=== PATIENT | female | born 1970 | race American Indian/Alaskan Native ===

== ENCOUNTER 2018-01-01 09:28 | Emergency (ER) | payer MEDICAID ==
[2018-01-01] MEDS ORDERED: Sulfamethoxazole/Trimethoprim 800-160 MG Tab PO ONE (09:51)
[2018-01-01 10:33] LABS: CHLORIDE,CL 106 mmol/L (98-107); SODIUM,NA 137 mmol/L (136-145)
[2018-01-01] MEDS ORDERED: Ketorolac 30 MG/ML SDV IM ONE (10:38)
[2018-01-01] MEDS ORDERED: Gabapentin 300 MG Cap PO ONE (10:39)
[2018-01-01] MEDS ORDERED: Take Home: Sulfamethoxazole/Trimethoprim 800-160 MG Tab, 2 Tab Pack PO ONE (10:51)
--- NOTE | 2018-01-01 10:51 | EDM.PDOC ---
ED HPI GENERAL MEDICAL PROBLEM - General Chief Complaint: General Stated Complaint: INFECTED TOES Time Seen by Provider: 01/01/18 09:30 Source of Information: Reports: Patient History Limitations: Reports: No Limitations - History of Present Illness INITIAL COMMENTS - FREE TEXT/NARRATIVE: Patient reports recent removal of bilateral great toe nails. This was done in [facility]. She is here due to worries of infection and pain to toes. She states she has puss draining from each site, they are red, and she is out of her prescribed gabapentin. She does have a history of HIV, is taking medications for this. She has no other complaints at this time. No fever or chills, no night sweats, shortness of breath, chest pain, no diaphoresis. Rates pain to toes a 7/10. She has been trying to keep them elevated. Onset: Gradual Onset Date: 12/29/17 Duration: Getting Worse Location: Reports: Other (great toes bilateral) Improves with: Reports: Medication Worsens with: Reports: Movement Associated Symptoms: Reports: No Other Symptoms - Related Data Allergies Allergy/AdvReac Type Severity Reaction Status Date / Time No Known Allergies Allergy Verified 01/01/18 09:57 Home Meds: Home Meds Gabapentin [Neurontin] 600 mg PO TID 01/01/18 [History] Lurasidone HCl [Latuda] 20 mg PO DAILY 01/01/18 [History] Sertraline HCl [Zoloft] 200 mg PO DAILY 01/01/18 [History] Past Medical History Psychiatric History: Reports: Depression Immunologic History: Reports: HIV Social & Family History - Tobacco Use Smoking Status *Q: Current Every Day Smoker Years of Tobacco use: 14 Packs/Tins Daily: 0.3 ED ROS GENERAL - Review of Systems Review Of Systems: See Below Constitutional: Reports: No Symptoms HEENT: Reports: No Symptoms Respiratory: Reports: No Symptoms Cardiovascular: Reports: No Symptoms Endocrine: Reports: No Symptoms GI/Abdominal: Reports: No Symptoms : Reports: No Symptoms Musculoskeletal: Reports: Other (toe pain bilateral) Skin: Reports: Wound (states it is infected with puss drainage) Neurological: Reports: No Symptoms Psychiatric: Reports: No Symptoms Hematologic/Lymphatic: Reports: No Symptoms Immunologic: Reports: No Symptoms ED EXAM, GENERAL - Physical Exam Exam: See Below Exam Limited By: No Limitations General Appearance: Alert, WD/WN, No Apparent Distress Ear Exam: Bilateral Ear: Auricle Normal, Canal Normal, TM normal Nose: Normal Inspection, Normal Mucosa, No Blood Throat/Mouth: Normal Inspection, Normal Lips, Normal Teeth, Normal Gums, Normal Oropharynx, Normal Voice, No Airway Compromise Head: Atraumatic, Normocephalic Neck: Normal Inspection, Supple, Non-Tender, Full Range of Motion Respiratory/Chest: No Respiratory Distress, Lungs Clear, Normal Breath Sounds, No Accessory Muscle Use, Chest Non-Tender Cardiovascular: Normal Peripheral Pulses, Regular Rate, Rhythm, No Edema, No Gallop, No JVD, No Murmur, No Rub Peripheral Pulses: 2+: Posterior Tibial (L), Posterior Tibial (R), Dorsalis Pedis (L), Dorsalis Pedis (R) GI/Abdominal: Normal Bowel Sounds, Soft, Non-Tender, No Organomegaly, No Distention, No Abnormal Bruit, No Mass Back Exam: Normal Inspection, Full Range of Motion, NT Extremities: Pedal Edema, Limited Range of Motion, Other (toes red, swollen great toes bilat.) Neurological: Alert, Oriented, CN II-XII Intact, Normal Cognition, Normal Gait, Normal Reflexes, No Motor/Sensory Deficits Psychiatric: Normal Affect, Normal Mood Skin Exam: Erythema, Increased Warmth, Wound/Incision (bilateral great toes) Course - Vital Signs Last Recorded V/S: Last Vital Signs Temp 36.9 C 01/01/18 09:40 Pulse 93 01/01/18 11:03 Resp 14 01/01/18 11:03 BP 143/83 H 01/01/18 11:03 Pulse Ox 98 01/01/18 11:03 - Orders/Labs/Meds Orders: Active Orders 24 hr Category Date Time Status CULTURE WOUND + SMEAR [RM] Stat Lab 01/01/18 10:15 Ordered Labs: Laboratory Tests 01/01/18 01/01/18 01/01/18 Range/Units 10:08 10:08 10:08 WBC 7.2 (4.0-10.0) x10^3/uL RBC 4.69 (4.00-5.50) x10^6/uL Hgb 13.3 (12.0-16.0) g/dL Hct 41.1 (33.0-47.0) % MCV 87.6 (78.0-93.0) fL MCH 28.4 (26.0-32.0) pg MCHC 32.4 (32.0-36.0) g/dL RDW Coeff of Elio 15.0 (10.0-15.0) % Plt Count 244 (130-400) x10^3/uL Neut % (Auto) 65.7 (50.0-80.0) % Lymph % (Auto) 25.2 (25.0-50.0) % [place] % (Auto) 8.0 (2.0-11.0) % Eos % (Auto) 1.0 (0.0-4.0) % Baso % (Auto) 0.1 L (0.2-1.2) % Sodium (136-145) mmol/L Potassium (3.5-5.1) mmol/L Chloride (98-107) mmol/L Carbon Dioxide (21-32) mmol/L Anion Gap (10-20) mmol/L BUN (7-18) mg/dL Creatinine (0.55-1.02) mg/dL Est Cr Clr Drug Dosing Estimated GFR (MDRD) Glucose (74-106) mg/dL Lactic Acid 1.0 (0.4-2.0) mmol/L Calcium (8.5-10.1) mg/dL Corrected Calcium (8.5-10.1) mg/dL Total Bilirubin (0.2-1.0) mg/dL AST (15-37) U/L ALT (14-59) U/L Alkaline Phosphatase (46-116) U/L C-Reactive Protein < 0.2 (<=0.9) mg/dL Total Protein (6.4-8.2) g/dL Albumin (3.4-5.0) g/dL Globulin Albumin/Globulin Ratio 01/01/18 Range/Units 10:08 WBC (4.0-10.0) x10^3/uL RBC (4.00-5.50) x10^6/uL Hgb (12.0-16.0) g/dL Hct (33.0-47.0) % MCV (78.0-93.0) fL MCH (26.0-32.0) pg MCHC (32.0-36.0) g/dL RDW Coeff of Elio (10.0-15.0) % Plt Count (130-400) x10^3/uL Neut % (Auto) (50.0-80.0) % Lymph % (Auto) (25.0-50.0) % [place] % (Auto) (2.0-11.0) % Eos % (Auto) (0.0-4.0) % Baso % (Auto) (0.2-1.2) % Sodium 137 (136-145) mmol/L Potassium 3.8 (3.5-5.1) mmol/L Chloride 106 (98-107) mmol/L Carbon Dioxide 25 (21-32) mmol/L Anion Gap 9.8 L (10-20) mmol/L BUN 7 (7-18) mg/dL Creatinine 0.9 (0.55-1.02) mg/dL Est Cr Clr Drug Dosing TNP Estimated GFR (MDRD) > 60 Glucose 93 (74-106) mg/dL Lactic Acid (0.4-2.0) mmol/L Calcium 9.8 (8.5-10.1) mg/dL Corrected Calcium 9.72 (8.5-10.1) mg/dL Total Bilirubin 0.5 (0.2-1.0) mg/dL AST 51 H (15-37) U/L ALT 105 H (14-59) U/L Alkaline Phosphatase 141 H (46-116) U/L C-Reactive Protein (<=0.9) mg/dL Total Protein 7.8 (6.4-8.2) g/dL Albumin 4.1 (3.4-5.0) g/dL Globulin 3.7 Albumin/Globulin Ratio 1.11 Meds: Medications Discontinued Medications Generic Name Dose Route Start Last Admin Trade Name Freq PRN Reason Stop Dose Admin Gabapentin 600 mg 01/01/18 10:39 01/01/18 10:50 Neurontin PO 01/01/18 10:40 600 mg ONETIME ONE Administration Ketorolac Tromethamine 30 mg 01/01/18 10:38 01/01/18 10:44 Toradol IM 01/01/18 10:39 30 mg ONETIME ONE Administration Trimethoprim/Sulfamethoxazole 1 tab 01/01/18 09:51 01/01/18 10:11 Septra Ds PO 01/01/18 09:52 1 tab ONETIME ONE Administration Trimethoprim/Sulfamethoxazole 1 packet 01/01/18 10:51 01/01/18 11:02 Take Home: Sulfameth/Trimet 800-160mg, 2 Pack PO 01/01/18 10:52 1 packet ONETIME ONE Administration Departure - Departure Time of Disposition: 11:02 Disposition: Home, Self-Care 01 Condition: Fair Clinical Impression: Toe infection - Discharge Information Instructions: Cellulitis, Adult, [id number] Referrals: PCP,Not In Area [Primary Care Provider] - Forms: ED Department Discharge Additional Instructions: You need to fill your prescription of Bactrim to prevent further infection. Right now you do not have signs of sepsis which is a whole body infection. I did refill your gabapentin, but you will need to see your primary for any refills. We will call you with culture results if you need to switch antibiotics. Follow up in 1 week or sooner if your symptoms persist or worsen. Drink plenty of water to stay hydrated, elevate your feet and stay off of them for the next few days as much as possible. Alternate ibuprofen and tylenol as needed for pain. Please call with any questions or concerns. - Problem List & Annotations (1) Cellulitis of toe SNOMED Code(s): 30583799 Code(s): L03.039 - CELLULITIS OF UNSPECIFIED TOE Status: Acute Priority: Low Qualifiers: Laterality: unspecified laterality Qualified Code(s): L03.039 - Cellulitis of unspecified toe (2) Toe infection SNOMED Code(s): 638358624 Code(s): L08.9 - LOCAL INFECTION OF THE SKIN AND SUBCUTANEOUS TISSUE, UNSP Status: Acute Priority: Low - Problem List Review Problem List Initiated/Reviewed/Updated: Yes - My Orders Last 24 Hours: My Active Orders 01/01/18 10:15 CULTURE WOUND + SMEAR [RM] Stat - Assessment/Plan Last 24 Hours: My Active Orders 01/01/18 10:15 CULTURE WOUND + SMEAR [RM] Stat Assessment:: bilateral great toe infection Plan: You need to fill your prescription of Bactrim to prevent further infection. Right now you do not have signs of sepsis which is a whole body infection. I did refill your gabapentin, but you will need to see your primary for any refills. We will call you with culture results if you need to switch antibiotics. Follow up in 1 week or sooner if your symptoms persist or worsen. Drink plenty of water to stay hydrated, elevate your feet and stay off of them for the next few days as much as possible. Alternate ibuprofen and tylenol as needed for pain. Please call with any questions or concerns.
== END 2018-01-01 11:03 | disposition home or self-care (01) ==
LOC: VM.ED 09:28
DX: L08.9 Local infection of the skin and subcutaneous tissue, unspecified (principal); B20 Human immunodeficiency virus [HIV] disease; F17.210 Nicotine dependence, cigarettes, uncomplicated; Z79.899 Other long term (current) drug therapy
CPT/HCPCS: 36415; 80053; 83605; 85025; 86140; 87070; 87077; 87186; 87205; 96372; 99284; A9270; J1885; 99283-GF